=== PATIENT | male | born 1960 | race Caucasian/White ===

== ENCOUNTER → 2016-10-27 | Day surgery (SDC) | payer OTHER ==
[~2016-10-27] MED LIST: CEPH500C PO; LRT5 PO; OXYC1TAB3 PO; PENI-82 PO
== END | disposition home or self-care (01) ==
LOC: C.ACU 13:29
PROVIDERS: ATTEND Surgery
DX: K57.92 Diverticulitis of intestine, part unspecified, without perforation or abscess without bleeding (principal)